=== PATIENT | male | born 1995 | race Caucasian/White ===

== ENCOUNTER 2020-10-03 20:12 | Emergency (ER) | payer OTHER, SELFPAY ==
[2020-10-03 20:27] VITALS: BP 120/69; PULSE 98; RESP 12; TEMP 36.9; O2SAT 98
[2020-10-03 21:42] VITALS: BP 124/78; PULSE 87; RESP 14; O2SAT 99
[2020-10-03] MEDS: LORazepam (*CRX) 1 MG TABLET PO (21:58)
[2020-10-03 22:50] LABS: Basophils Percent Auto 0.3 % (0.2-1.2); Eosinophils Absolute Auto 0.2 K/mm3 (0-0.3); Hematocrit 50.8 % (42.0-52.0); Hemoglobin 17.5 g/dL (14.0-18.0); Immature Granulocyte Absolute 0.06 K/mm3 (0.00-0.031); Immature Granulocyte Percent A 0.4 % (0-0.5); Lymphocytes Absolute Auto 2.42 K/mm3 (0.9-3.2); Lymphocytes Percent Auto 16.1 % (18.3-44.2); Mean Corpuscular HGB Conc 34.4 g/dl (32-36); Mean Platelet Volume 9.7 fl (7.4-10.4); Monocytes Absolute Auto 0.7 K/mm3 (0.1-0.6); Monocytes Percent Auto 4.5 % (2.6-8.5); Neutrophils Absolute Auto 11.7 K/mm3 (1.3-6.7); Neutrophils Percent Auto 77.7 % (45.5-73.1); Platelet Count Result 304 k/mm3 (150-375); Red Blood Count 5.84 M/mm3 (4.6-6.20); White Blood Count 15.1 K/mm3 (4.5-10.0)
[2020-10-03 23:03] VITALS: BP 123/82; PULSE 91; RESP 15; O2SAT 99
[2020-10-03 23:05] LABS: Alanine Aminotransferase 28 U/L (4-50); Albumin Level 5.1 g/dL (3.5-5.1); Alkaline Phosphatase 78 U/L (38-126); Anion Gap 10 mmol/L (8-16); Aspartate Amino Transferase 27 U/L (17-59); Bilirubin,Total 0.4 mg/dL (0.2-1.3); Blood Urea Nitrogen 11 mg/dL (9-20); Calcium 9.6 mg/dL (8.4-10.2); Carbon Dioxide 24 mmol/L (22-30); Chloride 105 mmol/L (98-107); Estimated CRCL calculation 147 ml/min; Estimated Glomerular Filt Rate > 60; Glucose 92 mg/dL (75-110); Magnesium 1.9 mg/dL (1.6-2.3); Potassium 4.1 mmol/L (3.4-5.0); Sodium 139 mmol/L (137-145)
[2020-10-04 00:41] VITALS: BP 117/81; PULSE 88; RESP 18; O2SAT 100
--- NOTE | 2020-10-04 01:30 | ED.GENADULT ---
HPI - General Adult General Chief complaint: Neuro Symptoms/Deficit Stated complaint: Tingling in legs Time Seen by Provider: 10/03/20 21:43 History of Present Illness HPI narrative: Patient is a 25-year-old gentleman who presents to emergency department chief complaint of paresthesias in his upper extremities and lower extremities. Patient states that it is bilaterally reports there is no focal neurological deficit. The patient reports that he has history of hyperthyroidism. Patient states that he is followed by endocrinology patient denies chest pain denies shortness of breath. Related Data Allergies Allergy/AdvReac Type Severity Reaction Status Date / Time Cephalosporins Allergy Mild Unknown Verified 10/03/20 21:43 Review of Systems Review of Systems: Narrative: A 10 system review of systems was completed on the patient and is negative except for what is stated in the HPI. Nursing and ancillary documentation was reviewed. PMFSH Social History Social History Gender identity (if verbalized by the patient): Male Comments Past medical history significant for hyperthyroidism. Social history the patient denies illicit drug use Exam Narrative: Exam Narrative: GENERAL: Well-appearing, well-nourished, and in no acute distress. HEAD: Normocephalic, atraumatic. EYES: PERRLA and EOMI. ENT: Nares clear, no rhinorrhea or epistaxis. Mucous membranes moist. NECK: Supple. CHEST: Clear to auscultation. No respiratory distress. HEART: Regular rate and rhythm. No murmur heard. Normal peripheral pulses. ABDOMEN: Soft, nontender, nondistended, normal active bowel sounds. EXTREMITIES: Normal range of motion. No edema. SKIN: Warm, dry, no rash. NEURO: No focal deficits. Alert and oriented x3. PSYCH: Normal mood and affect. Course Vital Signs Vital signs: Vital Signs Temperature 36.9 C 10/03/20 20:27 Pulse Rate 98 10/03/20 20:27 Respiratory Rate 12 10/03/20 20:27 Blood Pressure 120/69 10/03/20 20:27 Pulse Oximetry 98 10/03/20 20:27 Temperature 36.9 C 10/03/20 20:27 Pulse Rate 88 10/04/20 00:41 Respiratory Rate 18 10/04/20 00:41 Blood Pressure 117/81 10/04/20 00:41 Pulse Oximetry 100 10/04/20 00:41 Medical Decision Making Vital Signs Vital Signs: Vital Signs Temperature 36.9 C 10/03/20 20:27 Pulse Rate 98 10/03/20 20:27 Respiratory Rate 12 10/03/20 20:27 Blood Pressure 120/69 10/03/20 20:27 Pulse Oximetry 98 10/03/20 20:27 Temperature 36.9 C 10/03/20 20:27 Pulse Rate 88 10/04/20 00:41 Respiratory Rate 18 10/04/20 00:41 Blood Pressure 117/81 10/04/20 00:41 Pulse Oximetry 100 10/04/20 00:41 Lab Data Result diagrams: 10/03/20 22:31 10/03/20 22:31 Labs: Lab Results 10/03/20 10/03/20 10/03/20 Range/Units 22:31 22:31 22:31 WBC 15.1 H (4.5-10.0) K/mm3 RBC 5.84 (4.6-6.20) M/mm3 Hgb 17.5 (14.0-18.0) g/dL Hct 50.8 (42.0-52.0) % MCV 87.0 (80-100) fl MCH 30.0 (26-34) pg MCHC 34.4 (32-36) g/dl RDW 14.0 (11.5-14.5) % Plt Count 304 (150-375) k/mm3 MPV 9.7 (7.4-10.4) fl Immature Gran % (Auto) 0.4 (0-0.5) % Neut % (Auto) 77.7 H (45.5-73.1) % Lymph % (Auto) 16.1 L (18.3-44.2) % Anderson % (Auto) 4.5 (2.6-8.5) % Eos % (Auto) 1.0 (0-4.4) % Baso % (Auto) 0.3 (0.2-1.2) % Lymph # (Auto) 2.42 (0.9-3.2) K/mm3 Anderson # (Auto) 0.7 H (0.1-0.6) K/mm3 Eos # (Auto) 0.2 (0-0.3) K/mm3 Baso # (Auto) 0.0 (0.0-0.1) K/mm3 Abs Immat Gran (auto) 0.06 H (0.00-0.031) K/mm3 Absolute Neuts (auto) 11.7 H (1.3-6.7) K/mm3 Absolute Nucleated RBC 0.0 (0.0-0.012) K/mm3 Nucleated RBC % 0.0 (0.0-0.2) % Sodium 139 (137-145) mmol/L Potassium 4.1 (3.4-5.0) mmol/L Chloride 105 (98-107) mmol/L Carbon Dioxide 24 (22-30) mmol/L Anion Gap 10 (8-16) mmol/L BUN 11 (9-20) mg/dL Creatinine 0.80 (0.7-1.3) m
[2020-10-04 01:38] VITALS: BP 128/75; PULSE 69; RESP 15; O2SAT 97
[2020-10-07 06:37] LABS: Ionized Calcium 5.2 mg/dL (4.8-5.6)
== END 2020-10-04 01:39 | disposition home or self-care (01) ==
PROVIDERS: Emergency Provider Emergency Medicine; PCP Family Medicine
DX: R20.2 Paresthesia of skin (principal); E05.90 Thyrotoxicosis, unspecified without thyrotoxic crisis or storm
CPT/HCPCS: 36415; 80053; 82330; 83735; 84443; 85025; 99283; A9270